=== PATIENT | male | born 1965 | race Caucasian/White ===

== ENCOUNTER 2024-06-11 09:57 | Outpatient (AMB) | payer OTHER, SELFPAY ==
--- NOTE | 2024-06-11 11:33 | MHC.OFFWIV ---
Intake Vital Signs 06/11/24 11:34 Height 5 ft 8 in Weight 163 lb BMI 24.8 BP 132/70 Blood Pressure Location Lt brachial Position Sitting Pulse 68 Pulse Source Pulse Oximeter Temp 98.2 F Temp Source Oral Pulse Oximetry (%) 99 Oxygen Delivery Method Room Air Intake Visit Reasons: GATEKEEPER Sore throat Intake Note: Pt is here today c/o S/T x1day Allergies No Known Allergies Allergy (Verified 06/11/24 11:59) Medication List - Last Reconciled 06/11/24 by aNtacha Palm, EMPLOYEE BENEFITS SPECIALIST- amlodipine-benazepril 2.5-10 mg 1 cap PO DAILY atorvastatin 40 mg PO DAILY cetirizine 10 mg PO DAILY HPI HPI Comments History of Present Illness Details 58-year-old male here today which he complains of a sore throat and painful swallowing that started yesterday. Her than some chills which started this morning he denies any other symptoms. He has been using home remedies like tea and honey to help without relief. Exam Awake alert oriented, no acute distress Sclera & conjunctiva clear bilat Nares patent, terminates within normal limits TM intact with mild injection bilaterally Exudative pharyngitis, positive cervical adenopathy bilat, worse on the right Plan Despite the negative rapid strep done in the office today I will treat him for strep pharyngitis based on the exam today. Educate on recent return to the office This note is constructed using voice recognition software. While every effort has been made to ensure accuracy in environmental consultant, still errors may have been included Sometimes, these errors may affect the content or meaning of the given sentence . Physical Exam Vital Signs: Last Vital Signs Temp 98.2 F 06/11/24 11:34 Pulse 68 06/11/24 11:34 BP 132/70 06/11/24 11:34 Pulse Ox 99 06/11/24 11:34 Oxygen Delivery Method Room Air 06/11/24 11:34 BMI result Body Mass Index 24.8 Results AMB Rapid Strep AMB Rapid Strep Negative Last Edit by Imani Comer CMA on 06/11/24 11:48 Results Reviewed Results Reviewed: Laboratory Last Values Strep Scn Rapid Clinic Negative 06/11/24 11:37 Assessment & Plan Assessment & Plan (1) Strep pharyngitis: Code(s): J02.0 - Streptococcal pharyngitis Plan: . Orders: Orders AMB Rapid Strep Screen Today Z13.9 - Encounter for screening, unspecified Medications: New amoxicillin-pot clavulanate 875-125 mg 1 tab PO BID 7 days 14 tabs 0RF Patient Instructions: Good hand hygiene and respiratory etiquette can reduce the spread of all types of group A strep infection. Hand hygiene is especially important after coughing and sneezing and before preparing foods or eating. Good respiratory etiquette involves covering your cough or sneeze. Do not share food or drinks. Treating an infected person with an antibiotic for 12 hours or longer limits their ability to transmit the bacteria. Thus, people with group A strep pharyngitis should stay home from work, school, or daycare until: They are afebrile AND At least 12?24 hours after starting appropriate antibiotic therapy I also recommend changing toothbrush and washing bed linen in hot water 24 hours after starting antibiotics Coding Level of Care Code Est Pt Level 3 (12268) Diagnoses Strep pharyngitis J02.0
[2024-06-11 11:34] VITALS: BP 132/70; PULSE 68; TEMP 36.8; O2SAT 99; BMI 24.8
== END 2024-06-11 12:08 | disposition home or self-care (01) ==
PROVIDERS: PCP Nurse Practitioner Family; Visit Provider Nurse Practitioner Family
DX: J02.0 Streptococcal pharyngitis (principal); Z13.9 Encounter for screening, unspecified
CPT/HCPCS: 87880; 99213